=== PATIENT | female | born 1965 | race African-American/Black ===

== ENCOUNTER 2020-08-29 10:06 | Emergency (ER) | payer OTHER ==
[~2020-08-29] VITALS: Ht 157.5 cm; Wt 97.1 kg
[2020-08-29 10:22] VITALS: BP 157/96
== END 2020-08-29 12:09 | disposition home or self-care (01) ==
LOC: ER 10:06
DX: S60.041A Contusion of right ring finger without damage to nail, initial encounter (principal); E11.9 Type 2 diabetes mellitus without complications; I10 Essential (primary) hypertension; W22.01XA Walked into wall, initial encounter; Y93.89 Activity, other specified; Y92.89 Other specified places as the place of occurrence of the external cause; Y99.8 Other external cause status
CPT/HCPCS: 73130

== ENCOUNTER 2022-02-01 12:22 | Emergency (ER) | payer MEDICAID, OTHER ==
[~2022-02-01] VITALS: Ht 157.5 cm; Wt 95.3 kg
[2022-02-01 13:35] LABS: Basophils # (auto) 0.1 10 ^3/uL (0-0.2); Basophils % (auto) 1.6 % (0.0-2.0); Eosinophils # (auto) 0.1 10 ^3/uL (0-0.8); Eosinophils % (auto) 1.4 % (0.0-7.0); Hemoglobin 12.4 g/dL (12.2-16.2); Lymphocytes # (auto) 2.4 10 ^3/uL (0.4-5.4); Lymphocytes % (auto) 36.9 % (10.0-50.0); Mean Corpuscular Hemoglobin 29.3 pg (28.0-32.0); Mean Corpuscular Hgb Conc. 33.6 g/dL (32.0-36.0); Mean Corpuscular Volume 87.2 fL (80.0-100.0); Monocytes # (auto) 0.3 10 ^3/uL (0-1.3); Monocytes % (auto) 4.5 % (0.0-12.0); Neutrophils # (auto) 3.6 10 ^3/uL (1.6-8.6); Neutrophils % (auto) 55.6 % (37.0-80.0); Nucleated Red Blood Cells % 0.2 %; Red Blood Cells 4.24 10^6/uL (4.0-5.20); Red Cell Distribution Width 14.4 % (11.8-14.3); White Blood Cell 6.4 10^3/uL (4.4-10.8)
[2022-02-01 13:36] LABS: Albumin 4.1 g/dL (3.4-5.0); Calcium 9.3 mg/dL (8.5-10.1); Potassium 3.9 mmol/L (3.5-5.1)
[2022-02-01 13:39] LABS: BUN/Creatinine Ratio 13.8; Bilirubin, Total 0.5 mg/dL (0.2-1.0); Total Protein 7.6 g/dL (6.4-8.2)
[2022-02-01 17:13] LABS: Urine Bacteria FEW /hpf (None Seen); Urine Blood Negative /uL (Negative); Urine Specific Gravity 1.014 (1.001-1.035); Urine WBC 2 /hpf (0 - 5)
[2022-02-01] MEDS ORDERED: KETOROLAC TROMETH 60MG/2ML VIAL IM ONE (17:45)
[2022-02-01] MEDS ORDERED: cefTRIAXone 1GM/50ML D5W 50 ML IV ONE (21:00)
[2022-02-01 22:44] VITALS: BP 134/75
== END 2022-02-01 22:49 | disposition admitted as inpatient to this hospital (09) ==
LOC: ER 12:22
DX: R10.31 Right lower quadrant pain (principal); R11.0 Nausea; I10 Essential (primary) hypertension; E11.9 Type 2 diabetes mellitus without complications
CPT/HCPCS: 36415; 74176; 80053; 81001; 83690; 85025; 93005; 96365; 96372; 99285; J0696; J1885

== ENCOUNTER 2022-05-20 17:40 | Emergency (ER) | payer MEDICAID ==
[~2022-05-20] VITALS: Ht 157.5 cm; Wt 97.7 kg
[2022-05-20 18:35] VITALS: BP 150/71
[2022-05-20 19:02] LABS: Basophils # (auto) 0.1 10 ^3/uL (0-0.2); Basophils % (auto) 0.8 % (0.0-2.0); Eosinophils # (auto) 0.1 10 ^3/uL (0-0.8); Eosinophils % (auto) 0.9 % (0.0-7.0); Hemoglobin 11.6 g/dL (12.2-16.2); Lymphocytes # (auto) 2.1 10 ^3/uL (0.4-5.4); Lymphocytes % (auto) 24.9 % (10.0-50.0); Mean Corpuscular Hemoglobin 28.3 pg (28.0-32.0); Mean Corpuscular Hgb Conc. 32.3 g/dL (32.0-36.0); Mean Corpuscular Volume 87.7 fL (80.0-100.0); Monocytes # (auto) 0.4 10 ^3/uL (0-1.3); Monocytes % (auto) 5.2 % (0.0-12.0); Neutrophils # (auto) 5.8 10 ^3/uL (1.6-8.6); Neutrophils % (auto) 68.2 % (37.0-80.0); Nucleated Red Blood Cells % 0.1 %; Red Cell Distribution Width 14.2 % (11.8-14.3); White Blood Cell 8.5 10^3/uL (4.4-10.8)
[2022-05-20 19:06] LABS: Albumin 4.4 g/dL (3.4-5.0); Calcium 9.5 mg/dL (8.5-10.1); Magnesium 2.2 mg/dL (1.6-2.6); Potassium 3.8 mmol/L (3.5-5.1)
[2022-05-20 19:10] LABS: BUN/Creatinine Ratio 13.3; Bilirubin, Total 0.4 mg/dL (0.2-1.0); Total Protein 7.5 g/dL (6.4-8.2)
[2022-05-20 19:21] LABS: INR 0.95 (0.9-1.15); Partial Thromboplastin Time 28.1 sec (24.6-33.4)
== END 2022-05-21 01:27 | disposition left against medical advice (07) ==
LOC: ER 17:40
DX: R07.89 Other chest pain (principal); E11.9 Type 2 diabetes mellitus without complications; E78.5 Hyperlipidemia, unspecified; I10 Essential (primary) hypertension
CPT/HCPCS: 36415; 71045; 80053; 83735; 83880; 84443; 84484; 85025; 85379; 85610; 85730; 93005

== ENCOUNTER 2022-09-01 09:49 | Emergency (ER) | payer MEDICAID ==
[~2022-09-01] VITALS: Ht 170.2 cm; Wt 78.0 kg
[2022-09-01 10:54] LABS: Basophils # (auto) 0.1 10 ^3/uL (0-0.2); Basophils % (auto) 0.8 % (0.0-2.0); Eosinophils # (auto) 0.1 10 ^3/uL (0-0.8); Hematocrit 39.2 % (36.0-46.0); Hemoglobin 12.9 g/dL (12.2-16.2); Lymphocytes # (auto) 1.8 10 ^3/uL (0.4-5.4); Lymphocytes % (auto) 20.4 % (10.0-50.0); Mean Corpuscular Hemoglobin 29.1 pg (28.0-32.0); Mean Corpuscular Hgb Conc. 32.8 g/dL (32.0-36.0); Mean Corpuscular Volume 88.8 fL (80.0-100.0); Monocytes # (auto) 0.3 10 ^3/uL (0-1.3); Monocytes % (auto) 3.8 % (0.0-12.0); Neutrophils # (auto) 6.6 10 ^3/uL (1.6-8.6); Nucleated Red Blood Cells % 0.1 %; Red Blood Cells 4.41 10^6/uL (4.0-5.20); Red Cell Distribution Width 13.4 % (11.8-14.3); White Blood Cell 8.9 10^3/uL (4.4-10.8)
[2022-09-01 11:01] LABS: INR 0.91 (0.9-1.15); Partial Thromboplastin Time 26.7 sec (24.6-33.4)
[2022-09-01 11:03] LABS: Potassium 4.1 mmol/L (3.5-5.1)
[2022-09-01 11:11] LABS: BUN/Creatinine Ratio 16.2; Bilirubin, Total 0.3 mg/dL (0.2-1.0); Calcium 9.1 mg/dL (8.5-10.1); Magnesium 2.5 mg/dL (1.6-2.6); Total Protein 7.3 g/dL (6.4-8.2)
[2022-09-01] MEDS ORDERED: SODIUM CHLORIDE 0.9% 1,000 ML IV ONE (12:00)
[2022-09-01] MEDS ORDERED: METOCLOPRAMIDE HCL 5MG/ml INJ 2ml VIAL IV ONE (12:00)
[2022-09-01] MEDS ORDERED: MORPHINE SULFATE 4 MG/ML SYR/VIAL IV ONE (12:00)
[2022-09-01] MEDS ORDERED: KETOROLAC TROMETH 60MG/2ML VIAL IM ONE (17:30)
[2022-09-01 18:00] VITALS: BP 123/68
[2022-09-01] MEDS ORDERED: SUMA100T15 PO ×2 (19:21)
== END 2022-09-01 19:39 | disposition home or self-care (01) ==
LOC: EDBD 09:49 → ER 09:49
DX: G44.209 Tension-type headache, unspecified, not intractable (principal); E11.65 Type 2 diabetes mellitus with hyperglycemia; M13.0 Polyarthritis, unspecified; I10 Essential (primary) hypertension; E11.9 Type 2 diabetes mellitus without complications; E78.5 Hyperlipidemia, unspecified
CPT/HCPCS: 36415; 70450; 71045; 80053; 83735; 83880; 84484; 85025; 85610; 85730; 93005; 96361; 96372; 96374; 99285; J1885; J2765; J7030

== ENCOUNTER 2024-04-14 22:17 | Inpatient (IN) | payer MEDICAID ==
[~2024-04-14] VITALS: Ht 157.5 cm; Wt 89.1 kg
[~2024-04-14 22:17] MED LIST: SUMA100T15 PO
[2024-04-14 22:37] LABS: Basophils # (auto) 0.1 10 ^3/uL (0-0.2); Basophils % (auto) 0.9 % (0.0-2.0); Eosinophils # (auto) 0.1 10 ^3/uL (0-0.8); Eosinophils % (auto) 0.9 % (0.0-7.0); Hematocrit 37.9 % (36.0-46.0); Hemoglobin 12.4 g/dL (12.2-16.2); Lymphocytes # (auto) 3.9 10 ^3/uL (0.4-5.4); Lymphocytes % (auto) 43.7 % (10.0-50.0); Mean Corpuscular Hemoglobin 29.4 pg (28.0-32.0); Mean Corpuscular Hgb Conc. 32.8 g/dL (32.0-36.0); Mean Corpuscular Volume 89.9 fL (80.0-100.0); Monocytes # (auto) 0.5 10 ^3/uL (0-1.3); Monocytes % (auto) 5.6 % (0.0-12.0); Neutrophils # (auto) 4.4 10 ^3/uL (1.6-8.6); Neutrophils % (auto) 48.9 % (37.0-80.0); Nucleated Red Blood Cells % 0.2 %; Red Blood Cells 4.22 10^6/uL (4.0-5.20); Red Cell Distribution Width 13.8 % (11.8-14.3)
[2024-04-14 22:46] LABS: Alanine Aminotransferase 20 U/L (7-40); Albumin 4.6 g/dL (3.2-4.8); Alkaline Phosphatase 75 U/L (46-116); Anion Gap 7 (5-15); Aspartate Aminotransferase 18 U/L (13-40); BUN/Creatinine Ratio 13.6 (10.0-20.0); Bilirubin, Total 0.4 mg/dL (0.2-1.0); Blood Urea Nitrogen 17 mg/dL (9-23); Calcium 10.1 mg/dL (8.5-10.1); Carbon Dioxide 29 mmol/L (20-30); Chloride 104 mmol/L (98-107); Glucose 170 mg/dL (74-106); Potassium 3.5 mmol/L (3.5-5.1); Sodium 140 mmol/L (136-145); Total Protein 7.1 g/dL (5.7-8.2)
[2024-04-14 22:49] LABS: Urine Bacteria None Seen /hpf (None Seen); Urine WBC None Seen /hpf (0 - 5)
[2024-04-14 22:57] LABS: Urine Blood Negative /uL (Negative); Urine Budding Yeast OCCASIONAL /hpf (None Seen); Urine Clarity Clear (Clear); Urine Color Colorless (Yellow); Urine Protein, UAD Negative (Negative); Urine Specific Gravity 1.011 (1.001-1.035); Urine Urobilinogen Normal (Negative); Urine pH 6.5 (5.0-9.0)
[2024-04-15] MEDS: ASPirin 325 MG TAB PO ONE (00:06)
[2024-04-15] MEDS: NITROGLYCERIN 0.4MG/HR TOPICAL PATCH TD ONE (00:07)
[2024-04-15] MEDS ORDERED: ACETAMINOPHEN 325 MG TAB PO PRN (00:15)
[2024-04-15] MEDS ORDERED: ONDANSETRON HCL 4 MG/2 ML VIAL IV PRN (00:15)
[2024-04-15] MEDS ORDERED: DEXTROSE (50%) 50ML SYRG IV PRN (00:15)
[2024-04-15] MEDS ORDERED: NITROGLYCERIN 0.4 MG SL TAB SL PRN (00:15)
[2024-04-15] MEDS ORDERED: MORPHINE SULFATE INJ 2 MG/ml SYRG IV PRN (00:15)
[2024-04-15] MEDS ORDERED: MELATONIN 5 MG TAB PO PRN (00:15)
[2024-04-15 02:49] VITALS: BP 127/69; PULSE 70; RESP 16; RESP 18; O2SAT 100
[2024-04-15] MEDS: HYDROcodone-ACET 5/325MG TAB PO PRN (03:59)
[2024-04-15] MEDS ORDERED: FLUT1INH2 INH (04:33)
[2024-04-15] MEDS ORDERED: MONT-8 PO (04:33)
[2024-04-15] MEDS ORDERED: HYDR25TA5 PO (04:33)
[2024-04-15] MEDS ORDERED: MELO7.5T7 PO (04:33)
[2024-04-15] MEDS ORDERED: GAB100C PO (04:33)
[2024-04-15 05:00] VITALS: BP 98/55; PULSE 68; RESP 16; TEMP 97.6; O2SAT 97
[2024-04-15] MEDS: ACCU-CHEK COMFORT CURVE STRIP VI SCH (06:41)
[2024-04-15] MEDS: InsuLIN REG 1unit/0.01ml Soln (100units/ml) SC SCH (06:41)
[2024-04-15 07:15] LABS: Anion Gap 4 (5-15); Carbon Dioxide 31 mmol/L (20-30); Chloride 105 mmol/L (98-107); Sodium 140 mmol/L (136-145)
[2024-04-15 07:17] LABS: Calcium 9.7 mg/dL (8.5-10.1)
[2024-04-15 07:21] LABS: Glucose 106 mg/dL (74-106)
[2024-04-15 07:22] LABS: BUN/Creatinine Ratio 13.3 (10.0-20.0); Blood Urea Nitrogen 16 mg/dL (9-23); LDL Cholesterol 98 mg/dL (< 100); Magnesium 2.1 mg/dL (1.6-2.6); Triglycerides 145 mg/dL (< 150)
[2024-04-15 07:23] LABS: Cholesterol 177 mg/dL (< 200); HDL Cholesterol 49 mg/dL (40-59)
[2024-04-15 07:33] LABS: Lipase 67 U/L (12-53)
[2024-04-15 08:00] VITALS: PULSE 66; RESP 18; O2SAT 95
[2024-04-15] MEDS: ASPirin-EC 81 mg tab PO SCH (08:32)
[2024-04-15] MEDS: FAMOTIDINE 20 MG TAB PO SCH (08:32)
[2024-04-15] MEDS: ENOXAPARIN SOD 40 MG/0.4 ML SYRINGE SC SCH (08:33)
[2024-04-15 10:10] VITALS: BP 106/55; PULSE 64; RESP 19; TEMP 97.5; O2SAT 95
[2024-04-15 14:44] VITALS: BP 102/69; PULSE 69; RESP 19; TEMP 97.4; O2SAT 97
[2024-04-15 17:47] VITALS: BP 105/55; PULSE 73; RESP 18; TEMP 97.4; O2SAT 98
[2024-04-15] MEDS ORDERED: ATORVASTATIN 20 MG TAB PO SCH (22:00)
[2024-04-16 09:38] LABS: Hepatitis B Surface Antigen Negative (Negative)
[2024-04-16 10:00] LABS: Hepatitis C Antibody Negative (Negative)
== END 2024-04-15 17:00 | disposition home or self-care (01) | DRG 203 ==
LOC: ER 22:17 → TELE-WESTW 04-15 00:15 → TELE 04-15 00:15 → TELE-WESTW 04-15 02:41 → OBSVTOIN 04-15 11:23
PROVIDERS: ADMIT Nurse Practitioner Family; ATTEND Internal Medicine
DX: M94.0 Chondrocostal junction syndrome [Tietze] (principal); N17.0 Acute kidney failure with tubular necrosis; E11.9 Type 2 diabetes mellitus without complications; I10 Essential (primary) hypertension; E78.00 Pure hypercholesterolemia, unspecified; J45.909 Unspecified asthma, uncomplicated; I45.10 Unspecified right bundle-branch block; Z79.84 Long term (current) use of oral hypoglycemic drugs; Z83.3 Family history of diabetes mellitus; Z79.899 Other long term (current) drug therapy; Z87.891 Personal history of nicotine dependence; Z80.6 Family history of leukemia
CPT/HCPCS: 36415; 76705; 80048; 80053; 80061; 81001; 82962; 83690; 83735; 84443; 84484; 85025; 85379; 86803; 87340; 93005; 93306; G0378; J1815